=== PATIENT | male | born 1945 | race Caucasian/White ===

== ENCOUNTER 2018-07-07 13:48 | Emergency (ER) | payer MEDICARE, BC ==
[2018-07-07] MEDS ORDERED: Fluorescein Sod TOPICAL 0.6* 0.6 MG TEST OPHTHALMIC ONE ×2 (14:06→14:08)
[2018-07-07] MEDS ORDERED: BSS OPTH.SOL* BTL ONE (14:06)
[2018-07-07] MEDS ORDERED: Tetracaine 0.5% OPTH.SOL 4 ML* 1 DROP BTL ONE (14:07)
[2018-07-07 14:08] VITALS: BP 141/64
--- NOTE | 2018-07-07 14:29 | UC ---
Eye Complaint HPI - HPI Summary HPI Summary: Pt presents with c/o left eye pain and feeling of FB in left eye. Pt states that last evening he began to rub his left eye and felt "tiny rock"in left eye that now feels as though it is scraping on left outer corner of eye. Denies eye inflammation , redness or change in vision. - History of Current Complaint Chief Complaint: UCEye Stated Complaint: LEFT EYE COMPLAINT Time Seen by Provider: 07/07/18 13:58 Hx Obtained From: Patient Onset/Duration: Sudden Onset, Lasting Hours, Still Present Timing: Constant Severity Initially: Mild Severity Currently: Mild Pain Intensity: 5 Location of Injury: Eye Lid (upper), Sclera Character: Sharp, Foreign Body Sensation Aggravating Factor(s): Blinking Alleviating Factor(s): Nothing Associated Signs And Symptoms: Positive: Drainage (Clear) - Risk Factors Penetrating Injury Risk Factor: Negative Globe Rupture Risk Factors: Negative Acute Glaucoma Risk Factors: Negative Optic Artery Occlusion Risk Factors: Negative - Allergies/Home Medications Allergies/Adverse Reactions: Allergies Allergy/AdvReac Type Severity Reaction Status Date / Time No Known Allergies Allergy Verified 07/07/18 14:05 Home Medications: Home Medications Clopidogrel TAB* [Plavix TAB*] 75 mg PO DAILY 07/07/18 [History Confirmed ] Rivaroxaban TAB(*) [Xarelto 15 mg(*)] 15 mg PO DAILY 07/07/18 [History Confirmed 07/07/18] amLODIPine TAB* [Norvasc 5 mg TAB*] 5 mg PO DAILY 07/07/18 [History Confirmed ] PMH/Surg Hx/FS Hx/Imm Hx Previously Healthy: No Endocrine History: Diabetes, Dyslipidemia Cardiovascular History: Cardiac Disease, Hypertension - Surgical History Surgical History: Yes Surgery Procedure, Year, and Place: QUAD BY-PASS. BACK SX X 5. APPY. T&A. stents x4 - Family History Known Family History: Positive: Cardiac Disease - Social History Occupation: Retired Lives: With Family Alcohol Use: None Substance Use Type: None Smoking Status (MU): Never Smoked Tobacco Have You Smoked in the Last Year: No Review of Systems Constitutional: Negative Skin: Negative Eyes: Other - eye pain and FB sensation ENT: Negative Respiratory: Negative Cardiovascular: Negative Gastrointestinal: Negative Genitourinary: Negative Motor: Negative Neurovascular: Negative Musculoskeletal: Negative Neurological: Negative Psychological: Negative Is Patient Immunocompromised?: No All Other Systems Reviewed And Are Negative: Yes Physical Exam Triage Information Reviewed: Yes Appearance: Well-Appearing Vital Signs: Initial Vital Signs Temp 97.2 F 07/07/18 14:04 Pulse 66 07/07/18 14:04 Resp 16 07/07/18 14:04 BP 141/64 07/07/18 14:04 Pulse Ox 97 07/07/18 14:04 Vital Signs Reviewed: Yes Eye Exam: Normal Eyes: Positive: Other: - no uptake with fluoroscein staining, no FB visualized. ENT: Positive: Hearing grossly normal Dental Exam: Normal Neck exam: Normal Respiratory Exam: Normal Respiratory: Positive: No respiratory distress Musculoskeletal Exam: Normal Neurological Exam: Normal Psychological Exam: Normal Skin Exam: Normal Eye Complaint Course/Dx - Differential Dx/Diagnosis Differential Diagnosis/HQI/PQRI: Corneal Abrasion, Foreign Body Provider Diagnoses: left eye pain Discharge - Sign-Out/Discharge Documenting (check all that apply): Patient Departure All imaging exams completed and their final reports reviewed: No Studies - Discharge Plan Condition: Stable Disposition: HOME Patient Education Materials: Eye Pain (ED) Referrals: Drea Castillo MD [Primary Care Provider] - If Needed Additional Instructions: Please follow up with your eye care provider as soon as needed. - Billing Disposition and Condition Condition: STABLE Disposition: Home
== END 2018-07-07 14:28 | disposition home or self-care (01) ==
LOC: UCCORT 13:48
DX: H57.12 Ocular pain, left eye (principal); I25.10 Atherosclerotic heart disease of native coronary artery without angina pectoris; I10 Essential (primary) hypertension; Z79.02 Long term (current) use of antithrombotics/antiplatelets; Z79.899 Other long term (current) drug therapy
CPT/HCPCS: 99201; A9270-GY; G0463